=== PATIENT | male | born 1950 | race Caucasian/White ===

== ENCOUNTER 2022-11-22 13:50 | Emergency (ER) | payer MEDICARE, BC ==
[~2022-11-22] VITALS: Ht 170.2 cm; Wt 91.2 kg
[~2022-11-22 13:50] MED LIST: ASPIRIN81 MG PO; CARTIA XT180 MG PO; GABAPENTIN100 MG PO; HYDROCHLOROTHIA25 MG PO; MAGNESIUM OXID400 MG PO; MEDROL2 MG; METFORMIN HCL500 MG PO; METOPROLOL TART25 MG PO
[2022-11-22 15:54] LABS: CLARITY,URINE CLOUDY (CLEAR); COLOR,URINE YELLOW (YELLOW); KETONES,URINE NEGATIVE (NEGATIVE); LEUKOCYTE ESTERASE ,URINE LARGE (NEGATIVE); NITRITE,URINE POSITIVE (NEGATIVE); PROTEIN,URINE DIPSTICK 1+ (NEGATIVE); URINE UROBILINOGEN 1 mg/dL (0.2 - 1)
[2022-11-22 16:09] LABS: BACTERIA,URINE MANY /HPF; EPITHELIAL CELLS,URINE FEW /LPF; WBC,URINE (MAN) >50 /HPF (0-5)
[2022-11-22 16:10] LABS: BASOPHILS % 0.1 % (0.0-1.0); EOSINOPHILS # (AUTO) 0.1 (0.0-0.4); EOSINOPHILS % 1.7 % (0.0-6.0); HEMATOCRIT 38.8 % (38.2-49.6); HEMOGLOBIN 12.9 g/dL (14.0-18.0); LYMPHOCYTES # (AUTO) 1.1 (1.0-3.2); MEAN CORPUSCULAR HEMOGLOBIN 26.7 pg (28-32); MEAN CORPUSCULAR HGB CONC 33.2 g/dL (31-35); MEAN CORPUSCULAR VOLUME 80.3 fL (81-99); MONOCYTES # (AUTO) 0.7 (0.2-0.8); MONOCYTES % 9.8 % (4.4-11.3); NEUTROPHILS # (AUTO) 5.2 (2.1-6.9); PLATELET COUNT 204 x10e3/uL (140-360); RED BLOOD COUNT 4.83 x10e6/uL (4.3-5.7); RED CELL DISTRIBUTION WIDTH 13.3 % (11.7-14.4)
[2022-11-22] MEDS ORDERED: CEPHALEXIN500 MG PO (16:23)
[2022-11-22 17:48] VITALS: BP 152/79; PULSE 69; RESP 18; TEMP 99; O2SAT 100
== END 2022-11-22 16:35 | disposition home or self-care (01) ==
LOC: ER 13:57
DX: Z46.6 Encounter for fitting and adjustment of urinary device (principal); R50.9 Fever, unspecified; I10 Essential (primary) hypertension; E11.9 Type 2 diabetes mellitus without complications
CPT/HCPCS: 36415; 51700; 81001; 85025; 87086; 87186; 99283

== ENCOUNTER 2024-02-17 12:20 | Inpatient (IN) | payer MEDICARE, BC ==
[~2024-02-17] VITALS: Ht 170.2 cm; Wt 94.8 kg
[~2024-02-17 12:20] MED LIST changes: +CEPHALEXIN500 MG PO
[2024-02-17 13:09] LABS: BASOPHILS % 0.2 % (0.0-1.0); HEMATOCRIT 54.6 % (38.2-49.6); HEMOGLOBIN 17.8 g/dL (14.0-18.0); LYMPHOCYTES # (AUTO) 0.8 (1.0-3.2); MEAN CORPUSCULAR HEMOGLOBIN 27.2 pg (28-32); MEAN CORPUSCULAR HGB CONC 32.6 g/dL (31-35); MEAN CORPUSCULAR VOLUME 83.5 fL (81-99); MONOCYTES # (AUTO) 0.3 (0.2-0.8); MONOCYTES % 3.6 % (4.4-11.3); NEUTROPHILS # (AUTO) 8.2 (2.1-6.9); NEUTROPHILS % 87.5 % (38.7-80.0); PLATELET COUNT 135 x10e3/uL (140-360); RED BLOOD COUNT 6.54 x10e6/uL (4.3-5.7); RED CELL DISTRIBUTION WIDTH 15.1 % (11.7-14.4); WHITE BLOOD COUNT 9.39 x10e3/uL (4.8-10.8)
[2024-02-17] MEDS: SODIUM CHLORIDE 0.9% 500ML 500 ML IV ONE (13:20)
[2024-02-17 13:32] LABS: INR 1.05; PROTHROMBIN TIME 14.2 seconds (11.9-14.5)
[2024-02-17 13:33] LABS: PARTIAL THROMBOPLASTIN TIME 25.4 seconds (23.8-35.5)
[2024-02-17 13:34] LABS: CLARITY,URINE SL CLOUDY (CLEAR); COLOR,URINE YELLOW (YELLOW); LEUKOCYTE ESTERASE ,URINE 1+ (NEGATIVE); PH,URINE 5.5 (5 - 7)
[2024-02-17 13:34] LABS: ALBUMIN 4.1 g/dL (3.5-5.0); ALBUMIN/GLOBULIN RATIO 1.2 (0.8-2.0); ANION GAP 16.8 mmol/L (8-16); BILIRUBIN,TOTAL 1.2 mg/dL (0.2-1.2); CALCIUM 9.5 mg/dL (8.4-10.2); CREATININE, SERUM 1.18 mg/dL (0.72-1.25); POTASSIUM 3.8 mmol/L (3.5-5.1); TOTAL PROTEIN 7.6 g/dL (6.5-8.1)
[2024-02-17 13:35] LABS: BILIRUBIN,URINE NEGATIVE (NEGATIVE); GLUCOSE, URINE >=1000 (NEGATIVE); KETONES,URINE TRACE (NEGATIVE); NITRITE,URINE POSITIVE (NEGATIVE); PROTEIN,URINE DIPSTICK TRACE (NEGATIVE); URINE UROBILINOGEN 0.2 mg/dL (0.2 - 1)
[2024-02-17 13:43] LABS: BACTERIA,URINE MANY /HPF; RBC,URINE >50 /HPF (0-5); WBC,URINE (MAN) >50 /HPF (0-5)
[2024-02-17 13:44] LABS: EPITHELIAL CELLS,URINE FEW /LPF; RENAL EPITHELIAL CELLS,URINE FEW; TRANSITIONAL EPI CELLS,URINE FEW
[2024-02-17] MEDS ORDERED: IOPAMIDOL 370 MG/ML 100 ML INFUS..BTL INJ ONE (13:53)
[2024-02-17] MEDS ORDERED: SODIUM CHLORIDE 0.9% 250ML 250 ML ONE (13:54)
[2024-02-17] MEDS: ONDANSETRON HCL INJ 2MG/ML 2ML 2 MG/ML VIAL IV STA (15:08)
[2024-02-17] MEDS: ACETAMINOPHEN 325 MG TAB PO ONE (15:10)
[2024-02-17] MEDS: Vancomycin IV 1 GM in SODIUM CHLORIDE 0.9% 250ML 250 ML IV ONE (15:10)
[2024-02-17] MEDS: Morphine 2mg Syringe 2 MG/ML SYR IV STA (15:17)
[2024-02-17 15:29] VITALS: TEMP 98
[2024-02-17] MEDS ORDERED: ONDANSETRON HCL INJ 2MG/ML 2ML 2 MG/ML VIAL IV PRN (17:00)
[2024-02-17] MEDS ORDERED: Morphine 2mg Syringe 2 MG/ML SYR IV PRN (17:00)
[2024-02-17] MEDS: SODIUM CHLORIDE 0.9% 1000ML 1,000 ML IV SCH (17:44)
[2024-02-17] MEDS: METOPROLOL TARTRATE 25 MG TAB PO ONE (19:44)
[2024-02-17] MEDS: METOPROLOL TARTRATE INJ 1 MG/ML VIAL IV ONE (19:45)
[2024-02-17] MEDS: INSULIN LISPRO 100 UNIT/1 ML 3ML VIAL SQ SCH (21:00)
[2024-02-17 21:45] VITALS: PULSE 89; RESP 21
[2024-02-17] MEDS: GABAPENTIN 100 MG CAP PO SCH (21:47)
[2024-02-17] MEDS: ATORVASTATIN 20 MG TAB PO SCH (21:47)
[2024-02-17 23:30] VITALS: BP 147/72; PULSE 59; RESP 24; TEMP 100.8; O2SAT 96
[2024-02-17 23:31] VITALS: BP 147/72; PULSE 59; RESP 24; TEMP 100.8; O2SAT 96
[2024-02-18] VITALS (8 sets, daily range): BP systolic 124–151; BP diastolic 57–87; PULSE 32–92; RESP 18–27; TEMP 98.7–99.6; O2SAT 90–99
[2024-02-18 06:56] LABS: BASOPHILS % 0.4 % (0.0-1.0); EOSINOPHILS % 0.2 % (0.0-6.0); HEMATOCRIT 46.3 % (38.2-49.6); HEMOGLOBIN 15.2 g/dL (14.0-18.0); LYMPHOCYTES % 18.4 % (18.0-39.1); MEAN CORPUSCULAR HEMOGLOBIN 27.3 pg (28-32); MEAN CORPUSCULAR HGB CONC 32.8 g/dL (31-35); MEAN CORPUSCULAR VOLUME 83.1 fL (81-99); MONOCYTES # (AUTO) 0.4 (0.2-0.8); MONOCYTES % 7.1 % (4.4-11.3); NEUTROPHILS # (AUTO) 3.9 (2.1-6.9); PLATELET COUNT 119 x10e3/uL (140-360); RED BLOOD COUNT 5.57 x10e6/uL (4.3-5.7); RED CELL DISTRIBUTION WIDTH 14.2 % (11.7-14.4); WHITE BLOOD COUNT 5.39 x10e3/uL (4.8-10.8)
[2024-02-18 07:25] LABS: ALBUMIN 3.1 g/dL (3.5-5.0); ALBUMIN/GLOBULIN RATIO 1.1 (0.8-2.0); ANION GAP 13.4 mmol/L (8-16); BILIRUBIN,TOTAL 0.6 mg/dL (0.2-1.2); CALCIUM 8.1 mg/dL (8.4-10.2); CREATININE, SERUM 0.82 mg/dL (0.72-1.25); TOTAL PROTEIN 5.9 g/dL (6.5-8.1)
[2024-02-18 07:27] LABS: POTASSIUM 3.4 mmol/L (3.5-5.1)
[2024-02-18] MEDS: METOPROLOL TARTRATE 25 MG TAB PO SCH (08:37)
[2024-02-18] MEDS: DILTIAZEM HCL 180 MG CAP ER PO SCH (08:38)
[2024-02-19] VITALS (7 sets, daily range): BP systolic 117–142; BP diastolic 72–103; PULSE 50–60; RESP 17–20; TEMP 97.7–98; O2SAT 95–99
[2024-02-19 05:36] LABS: BASOPHILS % 0.4 % (0.0-1.0); EOSINOPHILS # (AUTO) 0.1 (0.0-0.4); EOSINOPHILS % 1.9 % (0.0-6.0); HEMATOCRIT 44.3 % (38.2-49.6); HEMOGLOBIN 14.3 g/dL (14.0-18.0); LYMPHOCYTES # (AUTO) 1.3 (1.0-3.2); LYMPHOCYTES % 26.8 % (18.0-39.1); MEAN CORPUSCULAR HEMOGLOBIN 27.1 pg (28-32); MEAN CORPUSCULAR HGB CONC 32.3 g/dL (31-35); MEAN CORPUSCULAR VOLUME 84.1 fL (81-99); MONOCYTES # (AUTO) 0.5 (0.2-0.8); MONOCYTES % 9.9 % (4.4-11.3); NEUTROPHILS # (AUTO) 2.8 (2.1-6.9); NEUTROPHILS % 59.7 % (38.7-80.0); PLATELET COUNT 121 x10e3/uL (140-360); RED BLOOD COUNT 5.27 x10e6/uL (4.3-5.7); RED CELL DISTRIBUTION WIDTH 14.4 % (11.7-14.4); WHITE BLOOD COUNT 4.74 x10e3/uL (4.8-10.8)
[2024-02-19 05:55] LABS: ANION GAP 10.4 mmol/L (8-16); CALCIUM 7.9 mg/dL (8.4-10.2); CREATININE, SERUM 0.77 mg/dL (0.72-1.25)
[2024-02-19 05:58] LABS: POTASSIUM 3.4 mmol/L (3.5-5.1)
[2024-02-19] MEDS ORDERED: CARVEDILOL6.25 MG PO (18:53)
[2024-02-19] MEDS ORDERED: HYDRALAZINE HCL50 MG PO (18:53)
[2024-02-19] MEDS ORDERED: FINASTERIDE5 MG PO (18:53)
[2024-02-19] MEDS ORDERED: ATORVASTATIN CA20 MG PO (18:53)
[2024-02-19] MEDS ORDERED: GLIMEPIRIDE2 MG PO (18:53)
[2024-02-19] MEDS ORDERED: JARDIANCE25 MG PO (18:53)
[2024-02-19] MEDS ORDERED: FLOMAX0.4 MG PO (18:53)
[2024-02-19] MEDS ORDERED: CLOPIDOGREL75 MG (18:56)
[2024-02-19] MEDS ORDERED: ONDANSETRON HCL 4 MG ORAL DISINTEGRATING TAB PO PRN (19:30)
== END 2024-02-19 19:20 | disposition home or self-care (01) | DRG 690 ==
LOC: ER 12:42 → ERHOLD 17:03 → ICU 23:14 → IMCU 02-18 21:02 → ERHOLD 02-19 16:37
PROVIDERS: ADMIT Family Medicine; ATTEND Family Medicine
DX: N39.0 Urinary tract infection, site not specified (principal); N12 Tubulo-interstitial nephritis, not specified as acute or chronic; B96.20 Unspecified Escherichia coli [E. coli] as the cause of diseases classified elsewhere; K44.9 Diaphragmatic hernia without obstruction or gangrene; R91.1 Solitary pulmonary nodule; R31.9 Hematuria, unspecified; I10 Essential (primary) hypertension; E11.9 Type 2 diabetes mellitus without complications; E78.5 Hyperlipidemia, unspecified; Z79.84 Long term (current) use of oral hypoglycemic drugs; I25.10 Atherosclerotic heart disease of native coronary artery without angina pectoris
CPT/HCPCS: 36415; 74178; 80048; 80053; 81001; 82948; 83036; 83735; 85025; 85610; 85730; 87040; 87086; 87186; 93005; 99252; 99284; J0696; J2270; J2405; J7030; J7040; J7050; Q9967